=== PATIENT | female | born 1955 | race Caucasian/White ===

== ENCOUNTER 2023-04-05 07:38 | Outpatient (RCR) | payer OTHER, SELFPAY ==
[2023-04-05 08:05] VITALS: BP 133/76
[2023-04-05] MEDS: XOLAIR 150 MG SC ×2 (08:24→08:25)
== END 2023-04-06 09:39 | disposition home or self-care (01) ==
LOC: OID 07:38
PROVIDERS: ATTENDING PHYSICIAN Internal Medicine Critical Care Medicine; FAMILY PHYSICIAN Family Medicine
DX: J45.40 Moderate persistent asthma, uncomplicated (principal); I82.409 Acute embolism and thrombosis of unspecified deep veins of unspecified lower extremity; R06.00 Dyspnea, unspecified; R76.8 Other specified abnormal immunological findings in serum; R05.9 Cough, unspecified
CPT/HCPCS: 96372; J2357

== ENCOUNTER 2023-05-31 07:36 | Outpatient (RCR) | payer OTHER, SELFPAY ==
[2023-05-31 07:45] VITALS: BP 135/71
[2023-05-31] MEDS: XOLAIR 150 MG SC ×2 (07:57)
== END 2023-06-01 10:26 | disposition home or self-care (01) ==
LOC: OID 07:36
PROVIDERS: ATTENDING PHYSICIAN Internal Medicine Critical Care Medicine; FAMILY PHYSICIAN Family Medicine
DX: J45.40 Moderate persistent asthma, uncomplicated (principal); R06.00 Dyspnea, unspecified; R76.8 Other specified abnormal immunological findings in serum; R05.9 Cough, unspecified
CPT/HCPCS: 96372; J2357

== ENCOUNTER 2023-07-26 07:38 | Outpatient (RCR) | payer OTHER, SELFPAY ==
[2023-06-28 08:00] VITALS: BP 128/71
[2023-06-28] MEDS: XOLAIR 150 MG SC ×2 (08:17)
[2023-07-26 07:55] VITALS: BP 135/62
[2023-07-26] MEDS: XOLAIR 150 MG SC ×2 (08:18)
== END 2023-07-27 08:03 | disposition home or self-care (01) ==
LOC: OID 07:38
PROVIDERS: ATTENDING PHYSICIAN Internal Medicine Critical Care Medicine; FAMILY PHYSICIAN Family Medicine
DX: J45.40 Moderate persistent asthma, uncomplicated (principal); I82.409 Acute embolism and thrombosis of unspecified deep veins of unspecified lower extremity; R06.00 Dyspnea, unspecified; R76.8 Other specified abnormal immunological findings in serum; R05.9 Cough, unspecified
CPT/HCPCS: 96372; J2357

== ENCOUNTER 2023-08-23 07:36 | Outpatient (RCR) | payer OTHER, SELFPAY ==
[2023-08-23 08:05] VITALS: BP 131/76
[2023-08-23] MEDS: XOLAIR 150 MG SC ×2 (08:11→08:12)
== END 2023-08-27 23:59 | disposition home or self-care (01) ==
LOC: OID 07:36
PROVIDERS: ATTENDING PHYSICIAN Internal Medicine Critical Care Medicine; FAMILY PHYSICIAN Family Medicine
DX: J45.40 Moderate persistent asthma, uncomplicated (principal); Z86.718 Personal history of other venous thrombosis and embolism; R06.00 Dyspnea, unspecified; R76.8 Other specified abnormal immunological findings in serum; R05.9 Cough, unspecified
CPT/HCPCS: 96372; J2357

== ENCOUNTER 2023-09-20 07:36 | Outpatient (RCR) | payer OTHER, SELFPAY ==
[2023-09-20 07:51] VITALS: BP 143/73
[2023-09-20] MEDS: XOLAIR 150 MG SC ×2 (07:59)
== END 2023-09-21 08:20 | disposition home or self-care (01) ==
LOC: OID 07:36
PROVIDERS: ATTENDING PHYSICIAN Internal Medicine Critical Care Medicine; FAMILY PHYSICIAN Family Medicine
DX: J45.40 Moderate persistent asthma, uncomplicated (principal); I82.409 Acute embolism and thrombosis of unspecified deep veins of unspecified lower extremity; R06.00 Dyspnea, unspecified; R76.8 Other specified abnormal immunological findings in serum; R05.9 Cough, unspecified
CPT/HCPCS: 96372; J2357

== ENCOUNTER 2023-10-18 07:39 | Outpatient (RCR) | payer OTHER, SELFPAY ==
[2023-10-18 07:53] VITALS: BP 141/75
[2023-10-18] MEDS: XOLAIR 150 MG SC ×2 (08:05→08:07)
== END 2023-10-18 12:32 | disposition home or self-care (01) ==
LOC: OID 07:39
PROVIDERS: ATTENDING PHYSICIAN Internal Medicine Critical Care Medicine; FAMILY PHYSICIAN Family Medicine
DX: J45.40 Moderate persistent asthma, uncomplicated (principal); R06.00 Dyspnea, unspecified; R76.8 Other specified abnormal immunological findings in serum; R05.9 Cough, unspecified; Z86.718 Personal history of other venous thrombosis and embolism
CPT/HCPCS: 96372; J2357

== ENCOUNTER 2023-11-15 07:33 | Outpatient (RCR) | payer OTHER, SELFPAY ==
[2023-11-15 07:47] VITALS: BP 130/65
[2023-11-15] MEDS: XOLAIR 150 MG SC ×2 (07:55)
== END 2023-11-16 09:35 | disposition home or self-care (01) ==
LOC: OID 07:33
PROVIDERS: ATTENDING PHYSICIAN Internal Medicine Critical Care Medicine; FAMILY PHYSICIAN Family Medicine
DX: J45.40 Moderate persistent asthma, uncomplicated (principal); I82.409 Acute embolism and thrombosis of unspecified deep veins of unspecified lower extremity; R06.00 Dyspnea, unspecified; R76.8 Other specified abnormal immunological findings in serum; R05.9 Cough, unspecified
CPT/HCPCS: 96372; J2357

== ENCOUNTER 2023-12-13 07:34 | Outpatient (RCR) | payer OTHER, SELFPAY ==
[2023-12-13 07:50] VITALS: BP 140/66
[2023-12-13] MEDS: XOLAIR 150 MG SC ×2 (07:58)
== END 2023-12-14 08:50 | disposition home or self-care (01) ==
LOC: OID 07:34
PROVIDERS: ATTENDING PHYSICIAN Internal Medicine Critical Care Medicine; FAMILY PHYSICIAN Family Medicine
DX: J45.40 Moderate persistent asthma, uncomplicated (principal); I82.409 Acute embolism and thrombosis of unspecified deep veins of unspecified lower extremity; R06.00 Dyspnea, unspecified; R76.8 Other specified abnormal immunological findings in serum; R05.9 Cough, unspecified
CPT/HCPCS: 96372; J2357

== ENCOUNTER → 2023-12-28 06:23 | Outpatient (REF) | payer OTHER, SELFPAY | LOC: HWWDC 06:23 | PROVIDERS: ATTENDING PHYSICIAN Nurse Practitioner Adult Health | DX: Z12.31 Encounter for screening mammogram for malignant neoplasm of breast (principal) | CPT/HCPCS: 77063; 77067 ==

== ENCOUNTER 2024-01-10 07:31 | Outpatient (RCR) | payer OTHER, SELFPAY ==
[2024-01-10 08:00] VITALS: BP 146/85
[2024-01-10] MEDS: XOLAIR 150 MG SC ×2 (08:12)
== END 2024-01-11 10:50 | disposition home or self-care (01) ==
LOC: OID 07:31
PROVIDERS: ATTENDING PHYSICIAN Internal Medicine Critical Care Medicine; FAMILY PHYSICIAN Family Medicine
DX: J45.40 Moderate persistent asthma, uncomplicated (principal); I82.409 Acute embolism and thrombosis of unspecified deep veins of unspecified lower extremity; R06.00 Dyspnea, unspecified; R76.8 Other specified abnormal immunological findings in serum; R05.9 Cough, unspecified
CPT/HCPCS: 96372; J2357

== ENCOUNTER 2024-02-07 07:33 | Outpatient (RCR) | payer OTHER, SELFPAY ==
[2024-02-07 07:55] VITALS: BP 130/78
[2024-02-07] MEDS: XOLAIR 150 MG SC ×2 (08:04)
== END 2024-02-08 08:38 | disposition home or self-care (01) ==
LOC: OID 07:33
PROVIDERS: ATTENDING PHYSICIAN Internal Medicine Critical Care Medicine; FAMILY PHYSICIAN Family Medicine
DX: J45.40 Moderate persistent asthma, uncomplicated (principal); I82.409 Acute embolism and thrombosis of unspecified deep veins of unspecified lower extremity; R06.00 Dyspnea, unspecified; R76.8 Other specified abnormal immunological findings in serum; R05.9 Cough, unspecified
CPT/HCPCS: 96372; J2357

== ENCOUNTER → 2024-02-19 06:40 | Outpatient (REF) | payer OTHER, SELFPAY ==
[2024-02-19 09:25] LABS: % Basophils 0.8 % (0-2); % Eosinophils 0.4 % (0-6); % Immature Granulocytes 0.1 % (0-0.5); % Lymphocytes 17.9 % (20.5-51.1); % Neutrophils 74.8 % (42.2-75.2); Absolute Basophils 0.1 10^3/uL (0-0.2); Absolute Lymphocytes 1.5 10^3/uL (1.2-3.4); Absolute Monocytes 0.5 10^3/uL (0.1-0.6); Absolute Neutrophils 6.2 10^3/uL (1.4-6.5); Hematocrit 47.1 % (37.0-47.0); Hemoglobin 14.8 g/dL (12.0-16.0); Mean Corp Hgb Conc. 31.4 g/dL (33.0-37.0); Mean Corpuscular Hgb 28.2 pg (27.0-31.0); Mean Corpuscular Volume 89.9 fL (81.0-99.0); Nucleated Red Blood Cells % 0 %; Platelet Count 220 10^3/uL (130-400); Red Blood Cell Count 5.24 10^6/uL (4.20-5.40); Red Cell Dist. Width 13.9 % (11.5-14.5); White Blood Cell Count 8.3 10^3/uL (4.8-10.8)
[2024-02-19 09:40] LABS: C-Reactive Protein < 5.00 mg/L (0.0-10.00)
[2024-02-19 09:57] LABS: Vitamin D, 25-OH*** 66.1 ng/mL (30-80)
[2024-02-19 10:10] LABS: TSH 2.88 uIU/ml (0.47-4.68)
[2024-02-19 10:11] LABS: Erythrocyte Sed Rate 17 mm/hour (0-20)
[2024-02-19 15:02] LABS: Rheumatoid Agglutinin Less Than 10 IU (<10 IU)
[2024-02-19 16:27] LABS: Lyme Antibody Screen, EIA Negative (Negative)
[2024-02-19 18:06] LABS: Hepatitis C Antibody Negative (Negative)
[2024-02-20 15:48] LABS: Syphilis/T. pallidum Ab Reflex Negative (Negative)
[2024-02-21 01:32] LABS: ANA, IgG Reflex to HEp-2 None Detected (None Detected)
[2024-02-21 14:02] LABS: CCP Antibody IgG/IgA 6 Units (0-19)
== END ==
LOC: HWLAB 06:40
PROVIDERS: ATTENDING PHYSICIAN Specialist; FAMILY PHYSICIAN Family Medicine
DX: Z13.0 Encounter for screening for diseases of the blood and blood-forming organs and certain disorders involving the immune mechanism (principal); R70.0 Elevated erythrocyte sedimentation rate; R79.82 Elevated C-reactive protein (CRP); R76.0 Raised antibody titer; M05.9 Rheumatoid arthritis with rheumatoid factor, unspecified; A69.20 Lyme disease, unspecified; A53.0 Latent syphilis, unspecified as early or late; E03.9 Hypothyroidism, unspecified; E55.9 Vitamin D deficiency, unspecified; Z11.59 Encounter for screening for other viral diseases
CPT/HCPCS: 36415; 82306; 84443; 85025; 85652; 86038; 86140; 86200; 86430; 86618; 86780; 86803

== ENCOUNTER 2024-03-06 07:37 | Outpatient (RCR) | payer OTHER, SELFPAY ==
[2024-03-06 07:50] VITALS: BP 150/75
[2024-03-06] MEDS: XOLAIR 150 MG SC ×2 (07:58→07:59)
== END 2024-03-07 08:29 | disposition home or self-care (01) ==
LOC: OID 07:37
PROVIDERS: ATTENDING PHYSICIAN Internal Medicine Critical Care Medicine; FAMILY PHYSICIAN Family Medicine
DX: J45.40 Moderate persistent asthma, uncomplicated (principal); I82.409 Acute embolism and thrombosis of unspecified deep veins of unspecified lower extremity; R06.00 Dyspnea, unspecified; R76.8 Other specified abnormal immunological findings in serum; R05.9 Cough, unspecified
CPT/HCPCS: 96372; J2357

== ENCOUNTER 2024-04-03 07:38 | Outpatient (RCR) | payer OTHER, SELFPAY ==
[2024-04-03 07:50] VITALS: BP 129/79
[2024-04-03] MEDS: XOLAIR 150 MG SC ×2 (07:59)
== END 2024-04-04 08:26 | disposition home or self-care (01) ==
LOC: OID 07:38
PROVIDERS: ATTENDING PHYSICIAN Internal Medicine Critical Care Medicine; FAMILY PHYSICIAN Family Medicine
DX: J45.40 Moderate persistent asthma, uncomplicated (principal); I82.409 Acute embolism and thrombosis of unspecified deep veins of unspecified lower extremity; R06.00 Dyspnea, unspecified; R76.8 Other specified abnormal immunological findings in serum; R05.9 Cough, unspecified
CPT/HCPCS: 96372; J2357

== ENCOUNTER 2024-04-30 14:09 | Emergency (ER) | payer OTHER, SELFPAY ==
[2024-04-30 14:10] VITALS: BP 169/106
[2024-04-30 14:34] LABS: % Basophils 0.8 % (0-2); % Eosinophils 0.7 % (0-6); % Immature Granulocytes 0.3 % (0-0.5); % Neutrophils 60.2 % (42.2-75.2); Absolute Basophils 0.1 10^3/uL (0-0.2); Absolute Lymphocytes 1.9 10^3/uL (1.2-3.4); Absolute Monocytes 0.4 10^3/uL (0.1-0.6); Absolute Neutrophils 3.7 10^3/uL (1.4-6.5); Hematocrit 44.1 % (37.0-47.0); Hemoglobin 14.5 g/dL (12.0-16.0); Mean Corp Hgb Conc. 32.9 g/dL (33.0-37.0); Mean Corpuscular Hgb 28.5 pg (27.0-31.0); Mean Corpuscular Volume 86.8 fL (81.0-99.0); Mean Platelet Volume 9.4 fL (7.4-10.4); Nucleated Red Blood Cells % 0 %; Platelet Count 210 10^3/uL (130-400); Red Blood Cell Count 5.08 10^6/uL (4.20-5.40); Red Cell Dist. Width 13.7 % (11.5-14.5); White Blood Cell Count 6.1 10^3/uL (4.8-10.8)
[2024-04-30 14:54] LABS: ALT (SGPT) 15 U/L (0-35); AST (SGOT) 25 U/L (14-36); Albumin 4.7 g/dl (3.5-5.0); Alkaline Phosphatase 97 U/L (38-126); Blood Urea Nitrogen 16 mg/dl (7-17); Calcium 9.7 mg/dl (8.4-10.2); Carbon Dioxide 28 mmol/L (22-30); Chloride 101 mmol/L (98-107); Glucose 97 mg/dl (70-99); Potassium 3.6 mmol/L (3.5-5.1); Sodium 139 mmol/L (135-145); Total Bilirubin 0.6 mg/dl (0.2-1.3); Total Protein 7.1 g/dl (6.3-8.2); eGFR > 60.00
[2024-04-30 16:55] VITALS: BP 165/92; BMI 26.6
[2024-04-30] MEDS: TYLENOL 1000 MG PO (17:28)
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
== END 2024-04-30 17:56 | disposition home or self-care (01) ==
LOC: EMR 14:09
PROVIDERS: EMERGENCY PHYSICIAN Emergency Medicine; FAMILY PHYSICIAN Family Medicine
DX: R51.9 Headache, unspecified (principal); H53.8 Other visual disturbances; E78.00 Pure hypercholesterolemia, unspecified; I25.10 Atherosclerotic heart disease of native coronary artery without angina pectoris; I50.9 Heart failure, unspecified; J45.909 Unspecified asthma, uncomplicated; R01.1 Cardiac murmur, unspecified; M19.90 Unspecified osteoarthritis, unspecified site; B02.9 Zoster without complications; Z86.711 Personal history of pulmonary embolism; Z88.6 Allergy status to analgesic agent; Z91.018 Allergy to other foods; Z91.048 Other nonmedicinal substance allergy status
CPT/HCPCS: 99284; 70450; 80053; 85025; 93005

== ENCOUNTER 2024-05-01 07:35 | Outpatient (RCR) | payer OTHER, SELFPAY ==
[2024-05-01 07:45] VITALS: BP 146/77
[2024-05-01] MEDS: XOLAIR 150 MG SC ×2 (07:58)
== END 2024-05-02 08:14 | disposition home or self-care (01) ==
LOC: OID 07:35
PROVIDERS: ATTENDING PHYSICIAN Internal Medicine Critical Care Medicine; FAMILY PHYSICIAN Family Medicine
DX: J45.40 Moderate persistent asthma, uncomplicated (principal); I82.409 Acute embolism and thrombosis of unspecified deep veins of unspecified lower extremity; R06.00 Dyspnea, unspecified; R76.8 Other specified abnormal immunological findings in serum; R05.9 Cough, unspecified
CPT/HCPCS: 96372; J2357

== ENCOUNTER 2024-06-26 07:29 | Outpatient (RCR) | payer OTHER, SELFPAY ==
[2024-05-29 08:05] VITALS: BP 135/74
[2024-05-29] MEDS: XOLAIR 150 MG SC ×2 (08:17→08:18)
[2024-06-26 07:57] VITALS: BP 130/77
[2024-06-26] MEDS: XOLAIR 150 MG SC ×2 (08:09)
== END 2024-06-26 23:59 | disposition home or self-care (01) ==
LOC: OID 07:29
PROVIDERS: ATTENDING PHYSICIAN Internal Medicine Critical Care Medicine; FAMILY PHYSICIAN Family Medicine
DX: J45.40 Moderate persistent asthma, uncomplicated (principal); I82.409 Acute embolism and thrombosis of unspecified deep veins of unspecified lower extremity; R06.00 Dyspnea, unspecified; R76.8 Other specified abnormal immunological findings in serum; R05.9 Cough, unspecified
CPT/HCPCS: 96372; J2357

== ENCOUNTER 2024-07-24 07:28 | Outpatient (RCR) | payer OTHER, SELFPAY ==
[2024-07-24] MEDS: XOLAIR 150 MG SC ×2 (08:01)
[2024-07-24 08:29] VITALS: BP 145/88
== END 2024-07-25 09:12 | disposition home or self-care (01) ==
LOC: OID 07:28
PROVIDERS: ATTENDING PHYSICIAN Internal Medicine Critical Care Medicine; FAMILY PHYSICIAN Family Medicine
DX: J45.40 Moderate persistent asthma, uncomplicated (principal); I82.409 Acute embolism and thrombosis of unspecified deep veins of unspecified lower extremity; R06.00 Dyspnea, unspecified; R76.8 Other specified abnormal immunological findings in serum; R05.9 Cough, unspecified
CPT/HCPCS: 96372; J2357

== ENCOUNTER 2024-08-21 07:38 | Outpatient (RCR) | payer OTHER, SELFPAY ==
[2024-08-21 07:45] VITALS: BP 109/69
[2024-08-21] MEDS: XOLAIR 150 MG SC ×2 (07:56)
== END 2024-08-22 08:42 | disposition home or self-care (01) ==
LOC: OID 07:38
PROVIDERS: ATTENDING PHYSICIAN Internal Medicine Critical Care Medicine; FAMILY PHYSICIAN Family Medicine
DX: J45.40 Moderate persistent asthma, uncomplicated (principal); R06.00 Dyspnea, unspecified; R76.8 Other specified abnormal immunological findings in serum; R05.9 Cough, unspecified
CPT/HCPCS: 96372; J2357

== ENCOUNTER 2024-09-18 07:35 | Outpatient (RCR) | payer OTHER, SELFPAY ==
[2024-09-18 07:50] VITALS: BP 139/75
[2024-09-18] MEDS: XOLAIR 150 MG SC ×2 (07:54)
== END 2024-09-19 08:28 | disposition home or self-care (01) ==
LOC: OID 07:35
PROVIDERS: ATTENDING PHYSICIAN Internal Medicine Critical Care Medicine; FAMILY PHYSICIAN Family Medicine
DX: J45.40 Moderate persistent asthma, uncomplicated (principal); R06.00 Dyspnea, unspecified; R76.8 Other specified abnormal immunological findings in serum; R05.9 Cough, unspecified
CPT/HCPCS: 96372; J2357

== ENCOUNTER 2024-10-16 07:30 | Outpatient (RCR) | payer OTHER, SELFPAY ==
[2024-10-16 07:58] VITALS: BP 144/75
[2024-10-16] MEDS: XOLAIR 150 MG SC ×2 (08:12→08:13)
== END 2024-10-17 08:06 | disposition home or self-care (01) ==
LOC: OID 07:30
PROVIDERS: ATTENDING PHYSICIAN Internal Medicine Critical Care Medicine; FAMILY PHYSICIAN Family Medicine
DX: J45.40 Moderate persistent asthma, uncomplicated (principal); R06.00 Dyspnea, unspecified; R76.8 Other specified abnormal immunological findings in serum; R05.9 Cough, unspecified
CPT/HCPCS: 96372; J2357

== ENCOUNTER 2024-11-13 07:37 | Outpatient (RCR) | payer OTHER, SELFPAY ==
[2024-11-13 07:45] VITALS: BP 135/78
[2024-11-13] MEDS: XOLAIR 150 MG SC ×2 (07:53)
== END 2024-11-14 08:10 | disposition home or self-care (01) ==
LOC: OID 07:37
PROVIDERS: ATTENDING PHYSICIAN Internal Medicine Critical Care Medicine; FAMILY PHYSICIAN Family Medicine
DX: J45.40 Moderate persistent asthma, uncomplicated (principal); I82.409 Acute embolism and thrombosis of unspecified deep veins of unspecified lower extremity; R06.00 Dyspnea, unspecified; R76.8 Other specified abnormal immunological findings in serum; R05.9 Cough, unspecified
CPT/HCPCS: 96372; J2357

== ENCOUNTER 2024-12-11 07:32 | Outpatient (RCR) | payer OTHER, SELFPAY ==
[2024-12-11 08:05] VITALS: BP 145/76
[2024-12-11] MEDS: XOLAIR 150 MG SC ×2 (08:13)
== END 2024-12-12 10:42 | disposition home or self-care (01) ==
LOC: OID 07:32
PROVIDERS: ATTENDING PHYSICIAN Internal Medicine Critical Care Medicine; FAMILY PHYSICIAN Family Medicine
DX: J45.40 Moderate persistent asthma, uncomplicated (principal); R06.00 Dyspnea, unspecified; R76.8 Other specified abnormal immunological findings in serum; R05.9 Cough, unspecified
CPT/HCPCS: 96372; J2357

== ENCOUNTER → 2024-12-31 06:08 | Outpatient (REF) | payer OTHER, SELFPAY ==
[2024-12-31 10:38] LABS: Hematocrit 43.1 % (37.0-47.0); Hemoglobin 13.9 g/dL (12.0-16.0); Mean Corp Hgb Conc. 32.3 g/dL (33.0-37.0); Mean Corpuscular Volume 89.4 fL (81.0-99.0); Nucleated Red Blood Cells % 0 %; Platelet Count 211 10^3/uL (130-400); Red Cell Dist. Width 14.1 % (11.5-14.5)
[2024-12-31 10:48] LABS: ALT (SGPT) 16 U/L (0-35); AST (SGOT) 22 U/L (14-36); Albumin 4.6 g/dl (3.5-5.0); Alkaline Phosphatase 77 U/L (38-126); Blood Urea Nitrogen 14 mg/dl (7-17); Calcium 9.3 mg/dl (8.4-10.2); Carbon Dioxide 29 mmol/L (22-30); Chloride 105 mmol/L (98-107); Glucose 101 mg/dl (70-99); HDL Cholesterol 78 mg/dl; LDL Cholesterol, Calculated 70 mg/dl; Potassium 4.3 mmol/L (3.5-5.1); Sodium 142 mmol/L (135-145); Total Protein 7.0 g/dl (6.3-8.2); Very Low Density Lipoprotein 12 mg/dl (0-30); eGFR > 60.00
[2024-12-31 10:59] LABS: Vitamin D, 25-OH*** 70.6 ng/mL (30-80)
[2024-12-31 11:03] LABS: Urine Character Clear (Clear)
[2024-12-31 11:28] LABS: Urine Squamous Cell >30 /LPF (Few)
[2024-12-31 11:32] LABS: Glycohemoglobin (HgbA1c) 5.8 % (4.0-5.9)
== END ==
LOC: HWWDC 06:08
PROVIDERS: ATTENDING PHYSICIAN Family Medicine; FAMILY PHYSICIAN Nurse Practitioner Adult Health
DX: I25.10 Atherosclerotic heart disease of native coronary artery without angina pectoris (principal); E78.2 Mixed hyperlipidemia; I10 Essential (primary) hypertension; E55.9 Vitamin D deficiency, unspecified; Z12.31 Encounter for screening mammogram for malignant neoplasm of breast
CPT/HCPCS: 36415; 77063; 77067; 80053; 80061; 81003; 81015; 82306; 83036; 84443; 85025

== ENCOUNTER 2025-01-08 07:27 | Outpatient (RCR) | payer OTHER, SELFPAY ==
[2025-01-08 08:02] VITALS: BP 150/83
[2025-01-08] MEDS: XOLAIR 150 MG SC ×2 (08:10)
== END 2025-01-09 10:18 | disposition home or self-care (01) ==
LOC: OID 07:27
PROVIDERS: ATTENDING PHYSICIAN Internal Medicine Critical Care Medicine; FAMILY PHYSICIAN Family Medicine
DX: J45.40 Moderate persistent asthma, uncomplicated (principal); R06.00 Dyspnea, unspecified; R05.9 Cough, unspecified
CPT/HCPCS: 96372; J2357

== ENCOUNTER 2025-02-05 07:28 | Outpatient (RCR) | payer OTHER, SELFPAY ==
[2025-02-05 07:52] VITALS: BP 156/74
[2025-02-05] MEDS: XOLAIR 150 MG SC ×2 (08:08)
== END 2025-02-06 08:25 | disposition home or self-care (01) ==
LOC: OID 07:28
PROVIDERS: ATTENDING PHYSICIAN Internal Medicine Critical Care Medicine; FAMILY PHYSICIAN Family Medicine
DX: J45.40 Moderate persistent asthma, uncomplicated (principal); R06.00 Dyspnea, unspecified; R05.9 Cough, unspecified
CPT/HCPCS: 96372; J2357